=== PATIENT | male | born 1990 | race Caucasian/White ===

== ENCOUNTER 2018-12-01 01:48 | Emergency (ER) | payer OTHER ==
--- NOTE | 2018-12-01 03:20 | ER Document Report ---
HPI - HPI Time Seen by Provider: 12/01/18 03:17 Pain Level: Denies Context: Patient is a 28-year-old male that comes to the emergency department for chief complaint of rash that is on his lower legs. This is indeed a rash that started yesterday, he states it began about half an hour after he ran [place] in the [place], underbrush only extends up to his knees, he only has a rash from the knees down. He states he was seen at [facility], given a dose of something by mouth that started "with a D", prescribed Bactrim for 5 days. He states that he was going crazy tonight after he went home from the hospital until he took 50 mg of Benadryl and now he feels much better. He is up-to-date on his vaccinations, he is active duty. He denies any other complaints. He has had trouble with poison chester and contact dermatitis in the past. Past Medical History - General Information source: Patient - Social History Smoking Status: Never Smoker Drug Abuse: None Lives with: Alone Family History: Reviewed & Not Pertinent - Medical History Medical History: Negative Surgical Hx: Negative - Immunizations Immunizations up to date: Yes Hx Diphtheria, Pertussis, Tetanus Vaccination: Yes Vertical Provider Document - CONSTITUTIONAL General Appearance: WD/WN, No Apparent Distress - INFECTION CONTROL TRAVEL OUTSIDE OF THE [place] IN LAST 30 DAYS: No - HEENT HEENT: Atraumatic, Normal ENT Exam, Normocephalic - NECK Neck: Normal Inspection - RESPIRATORY Respiratory: Breath Sounds Normal, No Respiratory Distress - CARDIOVASCULAR Cardiovascular: Regular Rate, Regular Rhythm - GI/ABDOMEN Gastrointestinal: Abdomen Soft, Abdomen Non-Tender - BACK Back: Normal Inspection - MUSCULOSKELETAL/EXTREMETIES Musculoskeletal/Extremeties: MAEW, FROM, Non-Tender - NEURO Level of Consciousness: Awake, Alert, Appropriate Motor/Sensory: No Motor Deficit, No Sensory Deficit - DERM Integumentary: Warm, Dry, Rash - Scattered erythematous papules, multiple excoriated areas over the front and back of both legs below the knee. No noted induration, fluctuance, there are a few areas of clear drainage but no purulent drainage, no noted tenderness. No swelling of the legs. No abnormal heat. Normal distal neurovascular exam of the legs, normal lower extremities otherwise. Course - Re-evaluation Re-evalutation: Patient is evaluation is consistent with contact dermatitis. There are multiple areas of excoriation but no areas of cellulitis noted. He is already on Bactrim prophylaxis. I suspect he was given dexamethasone. Because I am concerned about possibility of poison chester contact dermatitis I did discuss with patient and extended steroid dose which might be needed, he was provided with this along with cetirizine. Discussed additional precautions, return precautions, expeditions. Patient states understanding and agreement. Stable at time of discharge. - Vital Signs Vital signs: Temp Pulse Resp BP Pulse Ox 97.7 F 97 16 125/68 95 12/01/18 01:54 12/01/18 01:54 12/01/18 01:54 12/01/18 01:54 12/01/18 01:54 Discharge - Discharge Clinical Impression: Rash Condition: Stable Disposition: HOME, SELF-CARE Additional Instructions: Your evaluation shows contact dermatitis, this could be from poison chester but the exact contact dermatitis cause is uncertain. It is possible the dexamethasone you received will work, I recommend the cetirizine daily, you can take 50 mg of Benadryl at night to help you sleep as well. If after 48 hours the dexamethasone has not significantly improved your symptoms I recommend that you fill and take the prednisone course as prescribed. Symptoms should resolve with time. You can take the prescribed antibiotic to prevent a developing infection as well. Keep areas clean, clean with soap and water, if he scratched any areas open clean them and dressed them with a topical antibiotic. Try not to scratch them. Return if you worsen including developing swelling, spreading redness, fever, developing pain, or any other concerning or worsening symptoms. Prescriptions: Cetirizine HCl [All Day Allergy] 10 mg PO DAILY #30 capsule Prednisone [Deltasone 20 mg Tablet] 20 mg PO DAILY 21 Days #42 tablet
[2018-12-01 03:26] VITALS: BP 143/67
== END 2018-12-01 03:37 | disposition home or self-care (01) ==
LOC: ER 01:48
DX: R21 Rash and other nonspecific skin eruption (principal)
CPT/HCPCS: 99282